=== PATIENT | female | born 1975 | race Hispanic/Latino ===

== ENCOUNTER 2024-06-10 00:10 | Emergency (ER) | payer SELFPAY, OTHER ==
[2024-06-10] MEDS ORDERED: Ketorolac Tromethamine 30 MG (1 mL) VIAL ONE (00:35)
== END 2024-06-10 01:41 | disposition home or self-care (01) ==
LOC: CSHERS 00:10
DX: S16.1XXA Strain of muscle, fascia and tendon at neck level, initial encounter (principal); S20.219A Contusion of unspecified front wall of thorax, initial encounter; E11.9 Type 2 diabetes mellitus without complications; V49.9XXA Car occupant (driver) (passenger) injured in unspecified traffic accident, initial encounter; W22.11XA Striking against or struck by driver side automobile airbag, initial encounter; Z79.84 Long term (current) use of oral hypoglycemic drugs
CPT/HCPCS: 70450; 71250; 72125; 96372; J1885